=== PATIENT | male | born 1990 | race African-American/Black ===

== ENCOUNTER 2016-07-20 11:45 | Emergency (ER) | payer BC ==
[~2016-07-20] VITALS: Ht 160 cm; Wt 66.0 kg
[2016-07-20 14:02] VITALS: BP 120/88
== END 2016-07-20 14:04 | disposition home or self-care (01) ==
LOC: EDBD 11:45 → EME 11:45 → EXP 11:45
PROC: 0RSJXZZ Reposition Right Shoulder Joint, External Approach (ICD-10-PCS; principal; 2016-07-20)
DX: M24.411 Recurrent dislocation, right shoulder (principal); V00.311A Fall from snowboard, initial encounter; Y93.23 Activity, snow (alpine) (downhill) skiing, snowboarding, sledding, tobogganing and snow tubing; Y92.838 Other recreation area as the place of occurrence of the external cause
CPT/HCPCS: 73030; 99281; 99284; J2270; J3360